=== PATIENT | female | born 1995 | race Caucasian/White ===

== ENCOUNTER 2021-12-12 08:56 | Inpatient (IN) | payer BC ==
[~2021-12-12 08:56] MED LIST: Bupivacaine 0.25% 10 ML SDV ONE
[2021-12-12] MEDS ORDERED: Sodium Chloride 0.9% 10 ML Syringe FLUSH PRN (09:15)
[2021-12-12] MEDS ORDERED: Lactated Ringers 1,000 ML IV SCH (09:15)
[2021-12-12] MEDS ORDERED: Ondansetron 4 MG/2 ML SDV IVPUSH PRN (09:15)
[2021-12-12] MEDS ORDERED: Nalbuphine HCl 10 MG/ 1ML Amp IVPUSH PRN (09:15)
[2021-12-12] MEDS ORDERED: Oxytocin/Lactated Ringers 10 UNIT/1,000 ML BAG IV SCH (09:15)
[2021-12-12] MEDS ORDERED: diphenhydrAMINE 50 MG/ML SDV IVPUSH PRN (11:01)
[2021-12-12] MEDS ORDERED: fentaNYL 100 MCG/2 ML SDV EPIDUR PRN (11:01)
[2021-12-12] MEDS ORDERED: ePHEDrine 50 MG/ML SDV IVPUSH PRN (11:01)
[2021-12-12] MEDS ORDERED: Bupivacaine/fentaNYL/NS 100 ML Bag EPIDUR PRN (11:01)
[2021-12-12] MEDS ORDERED: Witch Hazel Medicated Pads 40/Jar TOP PRN (15:54)
[2021-12-12] MEDS ORDERED: Docusate Sodium 100 MG Cap PO PRN (15:54)
[2021-12-12] MEDS ORDERED: Benzocaine/Menthol 20%-0.5% Spray 78 GM Cannister TOP PRN (15:54)
[2021-12-12] MEDS ORDERED: Acetaminophen 325 MG Tab PO PRN (15:54)
[2021-12-12] MEDS: Ibuprofen 600 MG Tab PO PRN (20:29)
[2021-12-12] MEDS ORDERED: Sodium Chloride 0.9% 10 ML Syringe FLUSH SCH (21:00)
[2021-12-13] MEDS: Ibuprofen 600 MG Tab PO PRN (16:24)
== END 2021-12-13 17:35 | disposition home or self-care (01) | DRG 560 ==
LOC: JD.OB 08:56 → OBSVTOIN 14:04 → JD.OB 16:42
PROVIDERS: ADMIT Obstetrics & Gynecology; ATTEND Obstetrics & Gynecology
PROC: 10E0XZZ Delivery of Products of Conception, External Approach (ICD-10-PCS; principal; 2021-12-12)
PROC: 10907ZC Drainage of Amniotic Fluid, Therapeutic from Products of Conception, Via Natural or Artificial Opening (ICD-10-PCS; 2021-12-12)
PROC: 3E0R3BZ Introduction of Anesthetic Agent into Spinal Canal, Percutaneous Approach (ICD-10-PCS; 2021-12-12)
PROC: 00HU33Z Insertion of Infusion Device into Spinal Canal, Percutaneous Approach (ICD-10-PCS; 2021-12-12)
PROC: 0HQ9XZZ Repair Perineum Skin, External Approach (ICD-10-PCS; 2021-12-12)
DX: O36.5930 Maternal care for other known or suspected poor fetal growth, third trimester, not applicable or unspecified (principal); Z3A.40 40 weeks gestation of pregnancy; Z37.0 Single live birth; O70.0 First degree perineal laceration during delivery
CPT/HCPCS: 36415; 59025; 59409; 85027; 86592; 86850; 86900; 86901; A9270-GY; J2590; J3010; J3490; J7120